=== PATIENT | male | born 1960 | race Two or more races ===

== ENCOUNTER 2018-05-27 09:28 | Emergency (ER) | payer MEDICARE, MEDICAID ==
[2018-05-27 10:13] LABS: BASO % 0.5 % (0-6); EOS % 2.7 % (0-6); GRAN % 64.4 % (47-80); HEMATOCRIT 45.5 % (42.0-52.0); HEMOGLOBIN 15.6 gm/dl (14.0-18.0); LYMPH % 23.7 % (16-45); MEAN CELL VOLUME 90.1 fl (81-97); MEAN CORPUSCULAR HEMOGLOBIN 30.9 pg (27-33); MEAN CORPUSCULAR HGB CONC 34.3 g/dl (32-36); MEAN PLATELET VOLUME 9.3 fl (7.4-10.4); MONO % 8.7 % (0-9); PLATELET COUNT 210 K/uL (130-400); RED BLOOD COUNT 5.05 M/uL (4.40-5.70); RED CELL DISTRIBUTION WIDTH 12.8 % (11.5-14.5); WHITE BLOOD COUNT W/O DIFF 9.8 K/uL (4.2-12.2)
--- NOTE | 2018-05-27 10:13 | Emergency Department Record ---
History of Present Illness - General Chief Complaint: Hypertension Stated Complaint: HIGH BLOOD PRESSURE Time Seen by Provider: 05/27/18 09:55 Source: Patient Mode of Arrival: Ambulatory Limitations: No limitations - History of Present Illness Initial Comments: The patient is here due to seeing his PCP today and sent to the ER due to his BP being high. The patient has been on 2 different blood pressure medicines chronically and then recently stopped one because he felt it was giving him side effects. Since his BP has been running high. Presently he denies any CP, SOB, HONEY, BEE, or visual changes. The patient has had mild BEE's off and on for weeks but none now. He also had some vague L sided sharp CP last night that was intermittent and NOT associated with any nausea, SOB, HONEY, sweating, or dizziness. The pain was not exertional and did not radiate. He has had no pain today and denies any cardiac hx. MD Complaint: Other Onset/Timin -: Days(s) History of Same: No History of Trauma: No Improves With: Nothing Worsens With: Nothing Associated Symptoms: Denies other symptoms - [place] Coma Scale Eye Response: (4) Open spontaneously Motor Response: (6) Obeys commands Verbal Response: (5) Oriented [place] Total: 15 - Related Data Home Medications Medication Instructions Recorded Confirmed Last Taken Atenolol 50 mg PO BID 05/27/18 05/27/18 Unknown Previous Rx's Medication Instructions Recorded Amlodipine Besylate [Norvasc] 5 mg PO DAILY #30 tab 05/27/18 Allergies Allergy/AdvReac Type Severity Reaction Status Date / Time Penicillins Allergy PT UNSURE Unverified 05/27/18 09:35 OF REACTION Travel Screening - Travel/Exposure Within Last 30 Days Have you traveled within the last 30 days?: No Review of Systems Constitutional: Denies: Chills, Fever Eyes: Denies: Eye discharge ENT: Denies: Congestion Respiratory: Denies: Cough, Dyspnea Past Medical History - SOCIAL HISTORY Smoking Status: Current every day smoker Alcohol Use: None Drug Use: None - RESPIRATORY Hx Respiratory Disorders: No - CARDIOVASCULAR Hx Cardio Disorders: Yes Hx Hypertension: Yes - NEURO Hx Neuro Disorders: No - GI Hx GI Disorders: Yes Hx Reflux: Yes - Hx Genitourinary Disorders: No - ENDOCRINE Hx Endocrine Disorders: No - MUSCULOSKELETAL Hx Musculoskeletal Disorders: Yes Comment:: spinal pinched nerves - PSYCH Hx Psych Problems: No - HEMATOLOGY/ONCOLOGY Hx Hematology/Oncology Disorders: No Family Medical History Any Significant Family History?: No Physical Exam - General General Appearance: Alert, Oriented x3, Cooperative, No acute distress - Head Head exam: Atraumatic, Normocephalic, Normal inspection - Eye Eye exam: Normal appearance, PERRL, EOMI - ENT Throat exam: Normal inspection. negative: Tonsillar erythema, Tonsillar exudate - Neck Neck exam: Normal inspection, Full ROM. negative: Tenderness - Respiratory Respiratory exam: Normal lung sounds bilaterally. negative: Respiratory distress - Cardiovascular Cardiovascular Exam: Regular rate, Normal rhythm, Normal heart sounds - GI/Abdominal GI/Abdominal exam: Soft, Normal bowel sounds. negative: Tenderness - Extremities Extremities exam: Normal inspection, Full ROM, Normal capillary refill. negative: Tenderness - Back Back exam: Reports: Normal inspection - Neurological Neurological exam: Alert, Normal gait, Oriented X3. negative: Abnormal gait, Motor sensory deficit - Psychiatric Psychiatric exam: negative: Anxious Course Vital Signs 05/27/18 09:35 Temperature 98.3 F Pulse Rate 87 Respiratory 20 Rate Blood Pressure 196/120 Pulse Ox 96 - Reevaluation(s) Reevaluation #1: The patient is doing better at this time. He denies any pain, BEE, or visual changes. The patient's BP is still elevated at 186/112. He does tell me that he normally runs 1160's/90's so he is only mildly elevated from his norm. We will continue the Norvasc and will have the patient see his PCP in 2 weeks for recheck. 05/27/18 11:40 Medical Decision Making - Data Complexity MDM Data: Labs Ordered and/or Reviewed, EKG Ordered and/or Reviewed - Lab Data Result diagrams: 05/27/18 09:40 05/27/18 09:40 - EKG Data -: EKG Interpreted by Me EKG: No Acute Changes (NSR at 84, RBBB.) Disposition Disposition: Discharge Clinical Impression: Hypertension Qualifiers: Hypertension type: unspecified Qualified Code(s): I10 - Essential (primary) hypertension Disposition: Home, Self-Care Condition: (2) Stable Instructions: Hypertension (ED) Additional Instructions: Please continue your medicines and continue the Norvasc. Please see your family doctor in 2 weeks for recheck. Return to the ER for any worsening symptoms, or any pain, BEE, CP, or SOB. Prescriptions: Amlodipine Besylate [Norvasc] 5 mg PO DAILY #30 tab Forms: Patient Portal Access Time of Disposition: 11:42 Quality - Quality Measures Quality Measures: N/A - Blood Pressure Screening View Details: Yes Does Patient Have Any of the Following: Active Dx of HTN Blood Pressure Classification: Hypertensive Reading Systolic Measurement: 196 Diastolic Measurement: 120 Screening for High Blood Pressure: Patient Exclusion, Hx of HTN [G9744]
[2018-05-27 10:23] LABS: BLOOD UREA NITROGEN 10 mg/dL (6-20); CREATININE 1.1 mg/dL (0.7-1.2); EST GLOMERULAR FILTRATION RATE > 60 mL/min
[2018-05-27 10:24] LABS: TOTAL PROTEIN 7.4 g/dL (6.6-8.7)
[2018-05-27 10:26] LABS: GLUCOSE,RANDOM 101 mg/dL (74-109)
[2018-05-27 10:28] LABS: ALB/GLOB RATIO 1.4 (1.1-1.8); ALBUMIN 4.3 g/dL (4.0-5.0); ALT/SGPT 14 U/L (<41); AST/SGOT 14 U/L (10.0-50.0)
[2018-05-27 10:29] LABS: ALKALINE PHOSPHATASE 77 U/L (40-129); CREATINE PHOSPHOKINASE 42 U/L (39-308)
[2018-05-27 10:31] LABS: CKMB 1.1 ng/mL (<6.73)
[2018-05-27] MEDS ORDERED: AMLODIPINE BESYLATE 5MG TAB PO SCH (10:45)
== END 2018-05-27 11:57 | disposition home or self-care (01) ==
LOC: ER 09:28
DX: I10 Essential (primary) hypertension (principal); F17.210 Nicotine dependence, cigarettes, uncomplicated
CPT/HCPCS: 80053; 82550; 82553; 84484; 85025; 93005; 93010; 99284

== ENCOUNTER 2018-07-23 14:37 | Emergency (ER) | payer MEDICARE, MEDICAID ==
[2018-07-23] MEDS ORDERED: METHYLPREDNISOLONE PF 125MG/VIAL IVP ONE (14:45)
[2018-07-23] MEDS ORDERED: IPRATROPIUM/ALBUTEROL (0.5MG/3MG) NEB INH ONE (14:45)
--- NOTE | 2018-07-23 14:51 | Emergency Department Record ---
History of Present Illness - General Chief Complaint: Allergic Reaction Stated Complaint: REACTION TO MEDS /SOB Time Seen by Provider: 07/23/18 14:45 Source: Patient Mode of Arrival: Ambulatory Limitations: No limitations - History of Present Illness Initial Comments: 57 yo male presents with progressive shortness of breath for about 8 days. He states it at the time of starting three new medications. He wheezing and a chronic cough. PFT last year demonstrated moderate COPD. No chest pain. His sputum is clear. His is a long standing smoker. He denies any fever or chills. No nausea, vomiting or diarrhea. MD Complaint: Shortness of breath Onset/Timin -: Days(s) (8) Severity: Severe Improves With: Nothing Worsens With: Exertion Known History Of: COPD Context: Other (Smoker) Associated Symptoms: Cough, Other (New mediation) Treatments Prior to Arrival: None - Related Data Home Medications Medication Instructions Recorded Confirmed Last Taken Nicotine [Nicotine Patch] 1 each TD ASDIR 07/23/18 07/23/18 Unknown Triamterene/Hydrochlorothiazid 1 each PO DAILY 07/23/18 07/23/18 Unknown [Triamterene-Hctz 75-50 mg Tab] Previous Rx's Medication Instructions Recorded Prednisone [Prednisone 20Mg] 20 mg PO BID #10 tab 07/23/18 Allergies Allergy/AdvReac Type Severity Reaction Status Date / Time Penicillins Allergy Severe ANAPHYLAXIS Unverified 07/23/18 14:46 Travel Screening - Travel/Exposure Within Last 30 Days Have you traveled within the last 30 days?: No Review of Systems Constitutional: Denies: Chills, Fever, Malaise, Weakness Eyes: Denies: Eye discharge, Eye pain, Vision change ENT: Denies: Congestion, Throat pain Respiratory: Reports: Cough, Dyspnea, Wheezes Cardiovascular: Reports: Dyspnea on exertion. Denies: Chest pain, Edema, Palpitations, Syncope Endocrine: Reports: Polydipsia. Denies: Fatigue, Polyuria Gastrointestinal: Denies: Abdominal pain, Diarrhea, Nausea, Vomiting Genitourinary: Reports: Frequency. Denies: Dysuria, Hematuria Musculoskeletal: Denies: Arthralgia, Back pain, Myalgia Skin: Denies: Bruising, Change in color, Rash Neurological: Denies: Headache, Weakness Psychiatric: Denies: Anxiety Hematological/Lymphatic: Denies: Blood Clots, Easy bleeding, Easy bruising, Swollen glands Past Medical History - SOCIAL HISTORY Smoking Status: Current every day smoker Alcohol Use: None Drug Use: None - RESPIRATORY Hx Respiratory Disorders: No - CARDIOVASCULAR Hx Cardio Disorders: Yes Hx Hypertension: Yes - NEURO Hx Neuro Disorders: No - GI Hx GI Disorders: Yes Hx Reflux: Yes - Hx Genitourinary Disorders: No - ENDOCRINE Hx Endocrine Disorders: No - MUSCULOSKELETAL Hx Musculoskeletal Disorders: Yes Comment:: spinal pinched nerves - PSYCH Hx Psych Problems: No - HEMATOLOGY/ONCOLOGY Hx Hematology/Oncology Disorders: No Family Medical History Any Significant Family History?: No Physical Exam - General General Appearance: Alert, Oriented x3, Cooperative, No acute distress Limitations: No limitations - Head Head exam: Atraumatic, Normal inspection - Eye Eye exam: Normal appearance, PERRL. negative: Conjunctival injection, Scleral icterus - ENT ENT exam: Normal exam, Mucous membranes moist Ear exam: Normal external inspection Nasal Exam: Normal inspection Mouth exam: Normal external inspection - Neck Neck exam: Normal inspection - Respiratory Respiratory exam: Decreased breath sounds, Prolonged expiratory, Wheezes. negative: Normal lung sounds bilaterally, Accessory muscle use, Chest wall tenderness, Rales, Respiratory distress, Rhonchi, Stridor - Cardiovascular Cardiovascular Exam: Regular rate, Normal rhythm, Normal heart sounds Peripheral Pulses: 2+: Radial (R), Radial (L) - GI/Abdominal GI/Abdominal exam: Soft. negative: Tenderness - Rectal Rectal exam: Deferred - exam: Deferred - Extremities Extremities exam: Normal inspection, Full ROM, Normal capillary refill. negative: Tenderness - Back Back exam: Denies: CVA tenderness (R), CVA tenderness (L) - Neurological Neurological exam: Alert, Oriented X3 - Psychiatric Psychiatric exam: Normal affect, Normal mood - Skin Skin exam: Dry, Intact, Normal color, Warm Course Vital Signs 07/23/18 14:41 Temperature 97.4 F L Pulse Rate 69 Respiratory 20 Rate Blood Pressure 172/82 Pulse Ox 98 - Reevaluation(s) Reevaluation #1: EKG 14:53 Rate 66, intervals normal, [place] normal, ST No acute process, Incomplete RBBB, no changes 05/27/18 07/23/18 15:13 07/23/18 15:33 The labs were reviewed The CBC is unremarkable for significant changes The CR is 1.7 up from 1.1 The Troponin is normal. 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 We discussed his labs and reviewed his chart. He was recently started on triamterene - hydrochlorothiazide. He has noted increased urination and thirst since starting this. This medication will be held. He will have his labs rechecked Thursday and recheck in the office Thursday. 07/23/18 17:07 CXR was read as negative for any acute process We discussed home care with the inhaler and prednisone. He was instructed to hold his diuretic until follow up and he is aware of the need to have the renal function rechecked. Medical Decision Making - Lab Data Result diagrams: 07/23/18 14:50 07/23/18 14:50 Disposition Disposition: Discharge Clinical Impression: COPD exacerbation, Renal insufficiency Disposition: Home, Self-Care Condition: (1) Good Instructions: COPD (Chronic Obstructive Pulmonary Disease) (ED) Additional Instructions: Do not take your Triamterene Hydrochlorothiazide until your doctor tells you to Call to be seen Thursday by your doctor and have your blood tests rechecked Thursday by your doctor You may use the inhaler as directed every 4-6 hours Take the Prednisone twice daily as directed Return to the ED if the wheezing or shortness of breath return. Prescriptions: Prednisone [Prednisone 20Mg] 20 mg PO BID #10 tab Forms: Patient Portal Access Time of Disposition: 16:46 Quality - Quality Measures Quality Measures: N/A - Blood Pressure Screening Does Patient Have Any of the Following: No Blood Pressure Classification: Pre-Hypertensive BP Reading Systolic Measurement: 172 Diastolic Measurement: 82 Screening for High Blood Pressure: < Pre-Hypertensive BP, F/U Documented > [ G8950] Pre-Hypertensive Follow-up Interventions: Referral to alternative/primary care provider.
[2018-07-23 15:02] LABS: BASO % 0.3 % (0-6); EOS % 1.2 % (0-6); HEMATOCRIT 44.6 % (42.0-52.0); HEMOGLOBIN 14.9 gm/dl (14.0-18.0); MEAN CELL VOLUME 91.4 fl (81-97); MEAN CORPUSCULAR HEMOGLOBIN 30.5 pg (27-33); MEAN CORPUSCULAR HGB CONC 33.4 g/dl (32-36); MEAN PLATELET VOLUME 9.5 fl (7.4-10.4); MONO % 7.5 % (0-9); PLATELET COUNT 223 K/uL (130-400); RED BLOOD COUNT 4.88 M/uL (4.40-5.70); WHITE BLOOD COUNT W/O DIFF 11.7 K/uL (4.2-12.2)
[2018-07-23 15:10] LABS: BLOOD UREA NITROGEN 29 mg/dL (6-20); CREATININE 1.7 mg/dL (0.7-1.2); EST GLOMERULAR FILTRATION RATE 44 mL/min
[2018-07-23 15:11] LABS: TOTAL PROTEIN 7.7 g/dL (6.6-8.7)
[2018-07-23 15:13] LABS: GLUCOSE,RANDOM 123 mg/dL (74-109)
[2018-07-23 15:15] LABS: ALT/SGPT 13 U/L (<41); AST/SGOT 14 U/L (10.0-50.0)
[2018-07-23 15:16] LABS: ALB/GLOB RATIO 1.2 (1.1-1.8); ALBUMIN 4.2 g/dL (4.0-5.0); ALKALINE PHOSPHATASE 78 U/L (55-149)
[2018-07-23] MEDS ORDERED: ALBUTEROL HFA 8 GM INHALER INH ONE (16:03)
--- NOTE | 2018-07-25 11:03 | RADIOLOGY REPORT ---
DATE: 07/23/2018. EXAM: TWO-VIEW CHEST RADIOGRAPH. HISTORY: Difficulty breathing. Possible medication reaction. TECHNIQUE: Two views of the chest. COMPARISON: Lung CT dated 04/14/2017. FINDINGS: Cardiac silhouette within normal size limits. Pulmonary vasculature appears nondilated. No focal pulmonary consolidation. No pleural effusion or pneumothorax. IMPRESSION: NO ACUTE LUNG FINDINGS. JOB NUMBER: [id number] MTDD
== END 2018-07-23 17:25 | disposition home or self-care (01) ==
LOC: ER 14:37
DX: J44.1 Chronic obstructive pulmonary disease with (acute) exacerbation (principal); N28.9 Disorder of kidney and ureter, unspecified; I10 Essential (primary) hypertension; F17.210 Nicotine dependence, cigarettes, uncomplicated
CPT/HCPCS: 71046; 80053; 83880; 84484; 85025; 93005; 93010; 94640; 94664; 96374; 99284; J2930

== ENCOUNTER 2019-01-22 02:17 | Emergency (ER) | payer MEDICARE, MEDICAID ==
[2019-01-22] MEDS ORDERED: IPRATROPIUM/ALBUTEROL (0.5MG/3MG) NEB INH ONE ×2 (02:28→03:05)
[2019-01-22 02:35] LABS: ABSOLUTE NEUTROPHIL COUNT 15.44; HEMATOCRIT 42.6 % (42.0-52.0); MEAN CELL VOLUME 90.6 fl (81-97); MEAN CORPUSCULAR HEMOGLOBIN 29.8 pg (27-33); MEAN CORPUSCULAR HGB CONC 32.9 g/dl (32-36); MEAN PLATELET VOLUME 8.9 fl (7.4-10.4); PLATELET COUNT 345 K/uL (130-400); RED CELL DISTRIBUTION WIDTH 13.5 % (11.5-14.5); WHITE BLOOD COUNT W/O DIFF 19.9 K/uL (4.2-12.2)
--- NOTE | 2019-01-22 02:46 | Emergency Department Record ---
History of Present Illness - General Chief Complaint: Shortness of breath Stated Complaint: HONEY Time Seen by Provider: 01/22/19 02:18 Source: Patient Mode of Arrival: Ambulatory Limitations: No limitations - History of Present Illness Initial Comments: Pt to ED with complaint of HONEY onset over the past 24 hours. Progressively worse this evening. Pt with non productive cough, no fever. No CP and no hx of cardiac disease. Pt is every day smoker without hx of similar resp issues or COPD. Pt has hx DVT left leg in 2013. Currently not on anticoagulation. No Hx PE. Onset/Timin -: Hour(s) Severity scale (1-10): 10 Quality: Sharp Consistency: Constant Worsens With: Exertion Associated Symptoms: Nausea/vomiting Treatments Prior to Arrival: None - Related Data Home Medications Medication Instructions Recorded Confirmed Last Taken Cyclobenzaprine HCl [Flexeril] 5 mg PO TID PRN 01/22/19 01/22/19 01/22/19 Hydrocodone/Acetaminophen [[place] 1 - 2 tab PO TID 01/22/19 01/22/19 01/22/19 5-325 Tablet] RX: Chlorthalidone 25 mg PO DAILY 01/22/19 01/22/19 01/22/19 RX: Losartan Potassium 100 mg PO DAILY 01/22/19 01/22/19 01/22/19 RX: Omeprazole 20 mg PO DAILY 01/22/19 01/22/19 01/22/19 Allergies Allergy/AdvReac Type Severity Reaction Status Date / Time Penicillins Allergy Severe ANAPHYLAXIS Verified 01/22/19 02:24 Travel Screening - Travel/Exposure Within Last 30 Days Have you traveled within the last 30 days?: No - Travel/Exposure Within Last Year Have you traveled outside the [place] in the last year?: No - Additonal Travel Details Have you been exposed to anyone with a communicable illness?: No - Travel Symptoms Symptom Screening: None Past Medical History - SOCIAL HISTORY Smoking Status: Current every day smoker Alcohol Use: None Drug Use: None - RESPIRATORY Hx Respiratory Disorders: No - CARDIOVASCULAR Hx Cardio Disorders: Yes Hx Deep Vein Thrombosis: Yes Hx Hypertension: Yes - NEURO Hx Neuro Disorders: No - GI Hx GI Disorders: Yes Hx Reflux: Yes - Hx Genitourinary Disorders: No - ENDOCRINE Hx Endocrine Disorders: No - MUSCULOSKELETAL Hx Musculoskeletal Disorders: Yes Comment:: spinal pinched nerves - PSYCH Hx Psych Problems: No - HEMATOLOGY/ONCOLOGY Hx Hematology/Oncology Disorders: No Family Medical History Any Significant Family History?: No Physical Exam - General General Appearance: Alert, Oriented x3, Cooperative, Moderate distress Limitations: No limitations - Head Head exam: Atraumatic - Eye Eye exam: Normal appearance, PERRL, EOMI - ENT ENT exam: Mucous membranes moist Ear exam: Normal external inspection Nasal Exam: Normal inspection Mouth exam: Normal external inspection - Neck Neck exam: Normal inspection, Full ROM. negative: Lymphadenopathy, Tenderness - Respiratory Respiratory exam: Accessory muscle use, Decreased breath sounds, Prolonged expiratory, Rhonchi, Wheezes - Cardiovascular Cardiovascular Exam: Regular rate, Normal rhythm, Tachycardia Peripheral Pulses: 2+: Radial (R), Radial (L) - GI/Abdominal GI/Abdominal exam: Soft, Normal bowel sounds. negative: Guarding, Tenderness - Extremities Extremities exam: Full ROM. negative: Calf tenderness, Joint swelling, Pedal edema, Tenderness - Back Back exam: Reports: Normal inspection - Neurological Neurological exam: Alert, Normal gait, Oriented X3 - Psychiatric Psychiatric exam: Anxious, Normal affect, Normal mood - Skin Skin exam: Diaphoretic, Pallor. negative: Rash Course Vital Signs 01/22/19 01/22/19 02:17 02:35 Pulse Rate [ 109 H 114 H Adjutant General ] Respiratory 32 H 32 H Rate Blood Pressure 189/108 140/87 [Left Arm] Pulse Ox 94 L 94 L - Reevaluation(s) Reevaluation #1: 01/22/19 03:13 On arrival pt is pale and diaphoretic with marked HONEY. CXR is portable with poor inspiration and enlarged heart. No evidence of failure. EKG is unchanged and Trop #1 is neg, BNP 450. D dimer elevated 1.9. Pt given Duoneb on arrival with slight improvement BiPap with symptomatic improvement. PO 96% on 2L with BiPAP. With hx concern is for PE and pt is unable to have CTA due to renal function. Solumedrol IV 125mg and second Duoneb given. Lovenox 120mg SQ given. I spoke with Dr. Espinal at [facility] ED and he accepts patient for transfer to the ED. EMS notified. Pt is aware of transfer and concern for PE. Accepts plan. Procedures - EKG Initial Date: 01/22/19 Time: 02:15 EKG: No Acute Changes (SR at 119 ) Medical Decision Making - Management Options MDM Management: Additional Work-up Planned (e.g. ADM/Transfer/OP Study) - Data Complexity MDM Data: Labs Ordered and/or Reviewed, X-Ray Ordered and/or Reviewed, EKG Ordered and/or Reviewed, Independent Visualization of Image, Tracing, or Specimen, Decision to Obtain Old Record - Lab Data Result diagrams: 01/22/19 02:24 01/22/19 02:24 Lab Results 01/22/19 Range/Units 02:24 WBC 19.9 H (4.2-12.2) K/uL RBC 4.70 (4.40-5.70) M/uL Hgb 14.0 (14.0-18.0) gm/dl Hct 42.6 (42.0-52.0) % MCV 90.6 (81-97) fl MCH 29.8 (27-33) pg MCHC 32.9 (32-36) g/dl RDW 13.5 (11.5-14.5) % Plt Count 345 (130-400) K/uL MPV 8.9 (7.4-10.4) fl Neutrophils % 74.0 (47-80) % Band Neutrophils % 3.0 (0-5) % Eosinophils % Not Reportable Basophils % Not Reportable Absolute Neutrophils 15.44 Lymphocytes 12.0 L (16-45) % Monocytes 9.0 (0-9) % Basophils 0.0 (0-6) % Eosinophil Count 2.0 (0-6) % - EKG Data -: EKG Interpreted by Me EKG: No Acute Changes - Radiology Data Radiology results: Image reviewed -: Radiology Exam Interpreted by Myself Portable chest with poor insp and enlarged heart - Medical Decision Making Transfer to [facility] - Differential Diagnosis Pe vs COPD/pneumonia vs CHF (doubt) Critical Care Time Critical Care Time: Yes Total Critical Care Time: 60 (bedside attendance and multiple rechecks, calls for transfer.) Critical Care Time: 60 minutes Disposition Disposition: Transfer Clinical Impression: Tobacco abuse, Acute respiratory distress Leukocytosis Qualifiers: Leukocytosis type: unspecified Qualified Code(s): D72.829 - Elevated white blood cell count, unspecified Disposition: Acute Care Hospital Transfer Transfer To: [facility] Emergency Reason For Transfer: Rule out Pulmonary Embolism vs COPD vs other Accepting Physician: Dr. Espinal Time Discussed w/Accepting Physician: :19 Condition: (3) Guarded Forms: Patient Portal Access Time of Disposition: :19 Quality - Quality Measures Quality Measures: N/A - Blood Pressure Screening Does Patient Have Any of the Following: No Blood Pressure Classification: Pre-Hypertensive BP Reading Systolic Measurement: 133 Diastolic Measurement: 83 Screening for High Blood Pressure: < Pre-Hypertensive BP, F/U Documented > [G8950] Pre-Hypertensive Follow-up Interventions: Follow-up with rescreen every year.
[2019-01-22 02:48] LABS: BLOOD UREA NITROGEN 24 mg/dL (8-23)
[2019-01-22 02:49] LABS: CREATININE 1.6 mg/dL (0.7-1.2); EST GLOMERULAR FILTRATION RATE 47 mL/min; PARTIAL THROMBOPLASTIN TIME 33.7 SECONDS (24.5-39.1); PROTHROMBIN TIME (PATIENT) 10.7 SECONDS (9.5-12.1); TOTAL PROTEIN 8.1 g/dL (6.6-8.7)
[2019-01-22 02:51] LABS: GLUCOSE,RANDOM 133 mg/dL (74-109)
[2019-01-22 02:54] LABS: ALB/GLOB RATIO 1.2 (1.1-1.8); ALBUMIN 4.4 g/dL (4.0-5.0); ALT/SGPT 9 U/L (<41); AST/SGOT 10 U/L (10.0-50.0)
[2019-01-22 02:55] LABS: ALKALINE PHOSPHATASE 80 U/L (40-129)
[2019-01-22] MEDS ORDERED: ENOXAPARIN 100 MG/ML SYR SQ ONE (03:04)
[2019-01-22] MEDS ORDERED: METHYLPREDNISOLONE PF 125MG/VIAL IVP ONE (03:05)
--- NOTE | 2019-01-23 22:10 | RADIOLOGY REPORT ---
EXAM: CHEST 1 VIEW HISTORY: SHORTNESS OF BREATH. DECREASED OXYGEN SATURATION AND INCREASED RESPIRATORY RATE. SYMPTOMS FOR THE PAST TWO HOURS. TECHNIQUE: A single portable AP view of the chest was performed. COMPARISON: 07/23/2018. FINDINGS: There are low lung volumes. The heart, mediastinum, and pulmonary vasculature are normal. There are no visible acute infiltrates or effusions. There is no pneumothorax. The bones appear intact. IMPRESSION: 1. LOW LUNG VOLUMES. 2. NO ACUTE CHEST PATHOLOGY. JOB NUMBER: [id number] [facility]
== END 2019-01-22 04:02 | disposition short-term general hospital (02) ==
LOC: ER 02:17
DX: R06.03 Acute respiratory distress (principal); R79.89 Other specified abnormal findings of blood chemistry; D72.829 Elevated white blood cell count, unspecified; R11.2 Nausea with vomiting, unspecified; I10 Essential (primary) hypertension; F17.210 Nicotine dependence, cigarettes, uncomplicated; Z86.718 Personal history of other venous thrombosis and embolism
CPT/HCPCS: 71045; 80053; 83880; 84484; 85027; 85379; 85610; 85730; 93005; 93010; 94640; 94660; 96372; 96374; 99291; J1650; J2930

== ENCOUNTER 2019-02-07 10:36 | Emergency (ER) | payer MEDICARE, MEDICAID ==
--- NOTE | 2019-02-07 12:10 | Emergency Department Record ---
History of Present Illness - General Chief complaint: Swelling of legs Stated complaint: LT LEG SWOLLEN DUE TO MEDS Time Seen by Provider: 02/07/19 11:53 Source: Patient Mode of Arrival: Wheelchair - History of Present Illness Initial comments: pt c/o l leg pain behind the knee and up the thigh into the groin that feels like his previous dvt. no cp MD Complaint: Extremity pain, Extremity swelling Onset/Timin -: Days(s) Location: Left, Lower Leg, Thigh History of Same: No Radiation: None Severity scale (1-10): 10 Quality: Sharp Consistency: Constant Improves with: Immobilization Worsens with: Exertion, Walking, Weight bearing Associated Symptoms: Denies other symptoms - Related Data Home Medications Medication Instructions Recorded Confirmed Last Taken Hydrochlorothiazide [Hctz] 25 mg PO DAILY 02/07/19 02/07/19 Unknown Allergies Allergy/AdvReac Type Severity Reaction Status Date / Time Penicillins Allergy Severe ANAPHYLAXIS Verified 01/22/19 02:24 Travel Screening - Travel/Exposure Within Last 30 Days Have you traveled within the last 30 days?: No Review of Systems Reviewed: No additional complaints except as noted below Constitutional: Reports: As per HPI. Denies: Chills, Fever, Malaise, Night sweats, Weakness, Weight change Eyes: Reports: As per HPI. Denies: Eye discharge, Eye pain, Photophobia, Vision change ENT: Reports: As per HPI. Denies: Congestion, Dental pain, Ear pain, Epistaxis, Hearing loss, Throat pain Respiratory: Reports: As per HPI. Denies: Cough, Dyspnea, Hemoptysis, Stridor, Wheezes Cardiovascular: Reports: As per HPI. Denies: Arrhythmia, Chest pain, Dyspnea on exertion, Edema, Murmurs, Orthopnea, Palpitations, Paroxysmal nocturnal dyspnea, Rheumatic Fever, Syncope Endocrine: Reports: As per HPI. Denies: Fatigue, Heat or cold intolerance, Polydipsia, Polyuria Gastrointestinal: Reports: As per HPI. Denies: Abdominal pain, Constipation, Diarrhea, Hematemesis, Hematochezia, Melena, Nausea, Vomiting Genitourinary: Reports: As per HPI. Denies: Dysuria, Frequency, Hematuria, Incontinence, Retention, Testicular pain, Testicular mass, Urgency Musculoskeletal: Reports: As per HPI. Denies: Arthralgia, Back pain, Gout, Joint swelling, Myalgia, Neck pain Skin: Reports: As per HPI. Denies: Bruising, Change in color, Change in hair/nails, Lesions, Pruritus, Rash Neurological: Reports: As per HPI. Denies: Abnormal gait, Confusion, Headache, Numbness, Paresthesias, Seizure, Tingling, Tremors, Vertigo, Weakness Psychiatric: Reports: As per HPI. Denies: Anxiety, Auditory hallucinations, Depression, Homicidal thoughts, Suicidal thoughts, Visual hallucinations Hematological/Lymphatic: Reports: As per HPI. Denies: Anemia, Blood Clots, Easy bleeding, Easy bruising, Swollen glands Past Medical History - SOCIAL HISTORY Smoking Status: Current every day smoker - RESPIRATORY Hx Respiratory Disorders: No - CARDIOVASCULAR Hx Cardio Disorders: Yes Hx Deep Vein Thrombosis: Yes Hx Hypertension: Yes - NEURO Hx Neuro Disorders: No - GI Hx GI Disorders: Yes Hx Reflux: Yes - Hx Genitourinary Disorders: No - ENDOCRINE Hx Endocrine Disorders: No - MUSCULOSKELETAL Hx Musculoskeletal Disorders: Yes Comment:: spinal pinched nerves - PSYCH Hx Psych Problems: No - HEMATOLOGY/ONCOLOGY Hx Hematology/Oncology Disorders: No Family Medical History Any Significant Family History?: No Physical Exam - General General Appearance: Alert, Oriented x3, Cooperative, Mild distress - Head Head exam: Normal inspection - Eye Eye exam: Normal appearance, PERRL, EOMI Pupils: Normal accommodation - ENT ENT exam: Normal exam, Mucous membranes moist, Normal external ear exam, Normal orophraynx Ear exam: Normal external inspection. negative: External canal tenderness Nasal Exam: Normal inspection. negative: Discharge, Sinus tenderness Mouth exam: Normal external inspection, Tongue normal Teeth exam: Normal inspection. negative: Dental caries Throat exam: Normal inspection. negative: Tonsillar erythema, Tonsillar exudate - Neck Neck exam: Normal inspection, Full ROM. negative: Tenderness - Respiratory Respiratory exam: Normal lung sounds bilaterally. negative: Respiratory distress - Cardiovascular Cardiovascular Exam: Normal rhythm, Normal heart sounds, Tachycardia - GI/Abdominal GI/Abdominal exam: Soft, Normal bowel sounds. negative: Tenderness - Rectal Rectal exam: Deferred - exam: Deferred - Extremities Extremities exam: Normal capillary refill, Tenderness. negative: Full ROM - Back Back exam: Reports: Normal inspection, Full ROM. Denies: Muscle spasm, Rash noted, Tenderness - Neurological Neurological exam: Alert, CN II-XII intact, Normal gait, Oriented X3 - Psychiatric Psychiatric exam: Normal affect, Normal mood - Skin Skin exam: Dry, Intact, Normal color, Warm Course Vital Signs 02/07/19 11:08 Temperature 98.1 F Pulse Rate 108 H Respiratory 20 Rate Blood Pressure 162/87 Pulse Ox 97 - Reevaluation(s) Reevaluation #1: 02/07/19 12:08 d/w dr murillo Medical Decision Making - Lab Data Result diagrams: 02/07/19 11:58 02/07/19 11:58 Disposition Disposition: Transfer Clinical Impression: Leg pain Qualifiers: Laterality: left Qualified Code(s): M79.605 - Pain in left leg DVT (deep venous thrombosis) Qualifiers: DVT location: lower extremity Affected thrombotic vein of extremity: unspecified vein of extremity Chronicity: acute Laterality: left Qualified Code(s): I82.402 - Acute embolism and thrombosis of unspecified deep veins of left lower extremity Disposition: Acute Care Hospital Transfer Transfer To: [facility] Reason For Transfer: needs doppler Accepting Physician: dr murillo Time Discussed w/Accepting Physician: 12:10 Quality - Quality Measures Quality Measures: N/A - Blood Pressure Screening Does Patient Have Any of the Following: No Blood Pressure Classification: Pre-Hypertensive BP Reading Systolic Measurement: 162 Diastolic Measurement: 87 Screening for High Blood Pressure: < Pre-Hypertensive BP, F/U Documented > [G8950] Pre-Hypertensive Follow-up Interventions: Follow-up with rescreen every year.
[2019-02-07 12:12] LABS: ABSOLUTE NEUTROPHIL COUNT 13.84; BASO % 0.2 % (0-6); EOS % 2.6 % (0-6); HEMATOCRIT 38.2 % (42.0-52.0); LYMPH % 5.2 % (16-45); MEAN CORPUSCULAR HEMOGLOBIN 28.9 pg (27-33); MEAN CORPUSCULAR HGB CONC 31.4 g/dl (32-36); MEAN PLATELET VOLUME 8.6 fl (7.4-10.4); MONO % 6.4 % (0-9); PLATELET COUNT 207 K/uL (130-400); RED BLOOD COUNT 4.15 M/uL (4.40-5.70); RED CELL DISTRIBUTION WIDTH 14.2 % (11.5-14.5); WHITE BLOOD COUNT W/O DIFF 16.2 K/uL (4.2-12.2)
--- NOTE | 2019-02-07 12:13 | Emergency Department Record ---
History of Present Illness - General Chief complaint: Swelling of legs Stated complaint: LT LEG SWOLLEN DUE TO MEDS Time Seen by Provider: 02/07/19 11:53 Source: Patient Mode of Arrival: Wheelchair - History of Present Illness MD Complaint: Extremity pain, Extremity swelling Onset/Timin -: Days(s) Location: Left, Lower Leg, Thigh History of Same: No Radiation: None Severity scale (1-10): 10 Quality: Sharp Consistency: Constant Improves with: Immobilization Worsens with: Exertion, Walking, Weight bearing Associated Symptoms: Denies other symptoms - Related Data Home Medications Medication Instructions Recorded Confirmed Last Taken Hydrochlorothiazide [Hctz] 25 mg PO DAILY 02/07/19 02/07/19 Unknown Allergies Allergy/AdvReac Type Severity Reaction Status Date / Time Penicillins Allergy Severe ANAPHYLAXIS Verified 01/22/19 02:24 Travel Screening - Travel/Exposure Within Last 30 Days Have you traveled within the last 30 days?: No Review of Systems Constitutional: Reports: As per HPI. Denies: Chills, Fever, Malaise, Night sweats, Weakness, Weight change Eyes: Reports: As per HPI. Denies: Eye discharge, Eye pain, Photophobia, Vision change ENT: Reports: As per HPI. Denies: Congestion, Dental pain, Ear pain, Epistaxis, Hearing loss, Throat pain Respiratory: Reports: As per HPI. Denies: Cough, Dyspnea, Hemoptysis, Stridor, Wheezes Cardiovascular: Reports: As per HPI. Denies: Arrhythmia, Chest pain, Dyspnea on exertion, Edema, Murmurs, Orthopnea, Palpitations, Paroxysmal nocturnal dyspnea, Rheumatic Fever, Syncope Endocrine: Reports: As per HPI. Denies: Fatigue, Heat or cold intolerance, Polydipsia, Polyuria Gastrointestinal: Reports: As per HPI. Denies: Abdominal pain, Constipation, Diarrhea, Hematemesis, Hematochezia, Melena, Nausea, Vomiting Genitourinary: Reports: As per HPI. Denies: Dysuria, Frequency, Hematuria, Incontinence, Retention, Testicular pain, Testicular mass, Urgency Musculoskeletal: Reports: As per HPI. Denies: Arthralgia, Back pain, Gout, Joint swelling, Myalgia, Neck pain Skin: Reports: As per HPI. Denies: Bruising, Change in color, Change in hair/nails, Lesions, Pruritus, Rash Neurological: Reports: As per HPI. Denies: Abnormal gait, Confusion, Headache, Numbness, Paresthesias, Seizure, Tingling, Tremors, Vertigo, Weakness Psychiatric: Reports: As per HPI. Denies: Anxiety, Auditory hallucinations, Depression, Homicidal thoughts, Suicidal thoughts, Visual hallucinations Hematological/Lymphatic: Reports: As per HPI. Denies: Anemia, Blood Clots, Easy bleeding, Easy bruising, Swollen glands Past Medical History - SOCIAL HISTORY Smoking Status: Current every day smoker - RESPIRATORY Hx Respiratory Disorders: No - CARDIOVASCULAR Hx Cardio Disorders: Yes Hx Deep Vein Thrombosis: Yes Hx Hypertension: Yes - NEURO Hx Neuro Disorders: No - GI Hx GI Disorders: Yes Hx Reflux: Yes - Hx Genitourinary Disorders: No - ENDOCRINE Hx Endocrine Disorders: No - MUSCULOSKELETAL Hx Musculoskeletal Disorders: Yes Comment:: spinal pinched nerves - PSYCH Hx Psych Problems: No - HEMATOLOGY/ONCOLOGY Hx Hematology/Oncology Disorders: No Family Medical History Any Significant Family History?: No Physical Exam - General General Appearance: Alert, Oriented x3, Cooperative, No acute distress - Head Head exam: Normal inspection - Eye Eye exam: Normal appearance, PERRL, EOMI Pupils: Normal accommodation - ENT ENT exam: Normal exam, Mucous membranes moist, Normal external ear exam, Normal orophraynx Ear exam: Normal external inspection. negative: External canal tenderness Nasal Exam: Normal inspection. negative: Discharge, Sinus tenderness Mouth exam: Normal external inspection, Tongue normal Teeth exam: Normal inspection. negative: Dental caries Throat exam: Normal inspection. negative: Tonsillar erythema, Tonsillar exudate - Neck Neck exam: Normal inspection, Full ROM. negative: Tenderness - Respiratory Respiratory exam: Normal lung sounds bilaterally. negative: Respiratory distress - Cardiovascular Cardiovascular Exam: Regular rate, Normal rhythm, Normal heart sounds - GI/Abdominal GI/Abdominal exam: Soft, Normal bowel sounds. negative: Tenderness - Rectal Rectal exam: Deferred - exam: Deferred - Extremities Extremities exam: Normal inspection, Calf tenderness, Full ROM, Normal capillary refill, Tenderness Image of Full Body: 1 - tender w swelling - Back Back exam: Reports: Normal inspection, Full ROM. Denies: Muscle spasm, Rash noted, Tenderness - Neurological Neurological exam: Alert, Normal gait, Oriented X3, Reflexes normal - Psychiatric Psychiatric exam: Normal affect, Normal mood - Skin Skin exam: Dry, Intact, Normal color, Warm Course Vital Signs 02/07/19 11:08 Temperature 98.1 F Pulse Rate 108 H Respiratory 20 Rate Blood Pressure 162/87 Pulse Ox 97 Medical Decision Making - Lab Data Result diagrams: 02/07/19 11:58 02/07/19 11:58 Disposition Disposition: Transfer Clinical Impression: Leg pain Qualifiers: Laterality: left Qualified Code(s): M79.605 - Pain in left leg DVT (deep venous thrombosis) Qualifiers: DVT location: lower extremity Affected thrombotic vein of extremity: unspecified vein of extremity Chronicity: acute Laterality: left Qualified Code(s): I82.402 - Acute embolism and thrombosis of unspecified deep veins of left lower extremity Disposition: Acute Care Hospital Transfer Transfer To: [facility] Reason For Transfer: needs doppler Accepting Physician: dr murillo Time Discussed w/Accepting Physician: 12:13 Forms: Patient Portal Access Quality - Quality Measures Quality Measures: N/A - Blood Pressure Screening Does Patient Have Any of the Following: No Blood Pressure Classification: Pre-Hypertensive BP Reading Systolic Measurement: 162 Diastolic Measurement: 87 Screening for High Blood Pressure: < Pre-Hypertensive BP, F/U Documented > [G8950] Pre-Hypertensive Follow-up Interventions: Follow-up with rescreen every year.
[2019-02-07 12:32] LABS: CREATININE 1.7 mg/dL (0.7-1.2)
== END 2019-02-07 12:28 | disposition short-term general hospital (02) ==
LOC: ER 10:36
DX: I82.402 Acute embolism and thrombosis of unspecified deep veins of left lower extremity (principal); M79.605 Pain in left leg; I10 Essential (primary) hypertension; F17.210 Nicotine dependence, cigarettes, uncomplicated
CPT/HCPCS: 80048; 85027; 85379; 99285

== ENCOUNTER 2019-03-21 14:59 | Observation (INO) | payer MEDICARE, MEDICAID ==
--- NOTE | 2019-03-21 15:56 | Emergency Department Record ---
History of Present Illness - General Chief Complaint: Shortness of breath Stated Complaint: HONEY,CHILLS,DRY HEAVES Time Seen by Provider: 03/21/19 15:55 Source: Patient Mode of Arrival: Ambulatory Limitations: No limitations - History of Present Illness Initial Comments: 58 yo male presents with a cough with chills. He has had a cough for about a week. Over the last 24 hours his cough, wheezing and shortness of breath have increased. He has had subjective fevers and chills. The cough to this point has been non productive but he feels rattling in the chest. He has a history of COPD and recent diagnosis of PE. He is on Xarelto. No chest pain. The patient was admitted early February for a left leg thrombectomy and diagnosed with PE on VQ scan. MD Complaint: Cough -: Days(s) Quality: Aching Consistency: Constant Improves With: Nothing Worsens With: Coughing, Exertion Known History Of: COPD (a), Other (PE) Context: Other (Smoker) Associated Symptoms: Cough, Fever Treatments Prior to Arrival: None - Related Data Home Oxygen Therapy: No Home Medications Medication Instructions Recorded Confirmed Last Taken Rivaroxaban [Xarelto] 20 mg PO DAILY 03/21/19 03/21/19 1 Day Ago ~03/20/19 Umeclidinium Brm/Vilanterol Tr 1 each IH DAILY 03/21/19 03/21/19 1 Day Ago [Anoro Ellipta 62.5-25 Mcg INH] ~03/20/19 Allergies Allergy/AdvReac Type Severity Reaction Status Date / Time Penicillins Allergy Severe ANAPHYLAXIS Verified 03/21/19 16:02 Review of Systems Constitutional: Reports: Chills, Fever. Denies: Malaise, Weakness Eyes: Denies: Eye discharge, Eye pain, Photophobia, Vision change ENT: Reports: Congestion Respiratory: Reports: Cough, Dyspnea, Wheezes. Denies: Hemoptysis Cardiovascular: Denies: Chest pain, Palpitations, Syncope Endocrine: Denies: Fatigue, Polydipsia, Polyuria Gastrointestinal: Denies: Abdominal pain, Diarrhea, Nausea, Vomiting Genitourinary: Denies: Dysuria, Frequency, Hematuria Musculoskeletal: Denies: Arthralgia, Back pain, Myalgia Skin: Denies: Bruising, Change in color, Rash Neurological: Denies: Headache Psychiatric: Denies: Anxiety Hematological/Lymphatic: Reports: As per HPI, Blood Clots. Denies: Easy bleeding, Easy bruising Past Medical History - SOCIAL HISTORY Smoking Status: Current every day smoker - RESPIRATORY Hx Respiratory Disorders: No - CARDIOVASCULAR Hx Cardio Disorders: Yes Hx Deep Vein Thrombosis: Yes Hx Hypertension: Yes - NEURO Hx Neuro Disorders: No - GI Hx GI Disorders: Yes Hx Reflux: Yes - Hx Genitourinary Disorders: No - ENDOCRINE Hx Endocrine Disorders: No - MUSCULOSKELETAL Hx Musculoskeletal Disorders: Yes Comment:: spinal pinched nerves - PSYCH Hx Psych Problems: No - HEMATOLOGY/ONCOLOGY Hx Hematology/Oncology Disorders: No Physical Exam - General General Appearance: Alert, Oriented x3, Cooperative, No acute distress Limitations: No limitations - Head Head exam: Atraumatic, Normal inspection - Eye Eye exam: Normal appearance, PERRL. negative: Conjunctival injection, Scleral icterus - ENT ENT exam: Normal exam Ear exam: Normal external inspection Nasal Exam: Normal inspection Mouth exam: Normal external inspection - Neck Neck exam: Normal inspection - Respiratory Respiratory exam: Accessory muscle use, Decreased breath sounds, Prolonged expiratory, Rhonchi, Wheezes. negative: Normal lung sounds bilaterally, Respiratory distress - Cardiovascular Cardiovascular Exam: Normal rhythm, Normal heart sounds, Tachycardia. negative: Regular rate Peripheral Pulses: 2+: Radial (R), Radial (L) - GI/Abdominal GI/Abdominal exam: Soft. negative: Tenderness - exam: Deferred - Extremities Extremities exam: Pedal edema - Back Back exam: Denies: CVA tenderness (R), CVA tenderness (L) - Neurological Neurological exam: Alert, Oriented X3 - Psychiatric Psychiatric exam: Normal affect, Normal mood - Skin Skin exam: Dry, Intact, Normal color, Warm Course - Reevaluation(s) Reevaluation #1: 03/21/19 16:52 The CBC was reviewed WBC is 15 with Hgb of 11.5 03/21/19 17:07 CXR with a new right pleural effusion 03/21/19 18:38 Lab was contacted BUN is 16 CR is 1.8 (Prior is 1.7) Glucose is 134 03/21/19 18:44 The case was discussed with Marli Fitch [employer] for admission for antibiotics, breathing treatments, monitoring, and steroids. Medical Decision Making - Lab Data Result diagrams: 03/21/19 16:28 03/21/19 16:28 Disposition Disposition: Admit Clinical Impression: COPD (chronic obstructive pulmonary disease), Recurrent right pleural effusion, Pneumonia Disposition: Still a Patient at [facility] Decision to Admit: Admit from ER Decision to Admit Date: 03/21/19 Decision to Admit Time: 18:38 Condition: (2) Stable Forms: Patient Portal Access Time of Disposition: 18:38 Quality - Quality Measures Quality Measures: N/A - Blood Pressure Screening Does Patient Have Any of the Following: Active Dx of HTN Blood Pressure Classification: Hypertensive Reading Systolic Measurement: 175 Diastolic Measurement: 123 Screening for High Blood Pressure: Patient Exclusion, Hx of HTN [G9744]
[2019-03-21] MEDS ORDERED: IPRATROPIUM/ALBUTEROL (0.5MG/3MG) NEB INH ONE (16:13)
[2019-03-21] MEDS ORDERED: METHYLPREDNISOLONE PF 125MG/VIAL IVP ONE (16:14)
[2019-03-21] MEDS ORDERED: ALBUTEROL (0.5% CONCENTRATED) 2.5 MG/0.5 ML VIAL.NEB INH ONE (16:14)
[2019-03-21 16:46] LABS: ABSOLUTE NEUTROPHIL COUNT 14.17; HEMATOCRIT 35.9 % (42.0-52.0); HEMOGLOBIN 11.2 gm/dl (14.0-18.0); MEAN CELL VOLUME 92.5 fl (81-97); MEAN CORPUSCULAR HEMOGLOBIN 28.8 pg (27-33); MEAN CORPUSCULAR HGB CONC 31.2 g/dl (32-36); MEAN PLATELET VOLUME 8.8 fl (7.4-10.4); PLATELET COUNT 293 K/uL (130-400); RED BLOOD COUNT 3.88 M/uL (4.40-5.70); RED CELL DISTRIBUTION WIDTH 14.2 % (11.5-14.5); WHITE BLOOD COUNT W/O DIFF 15.6 K/uL (4.2-12.2)
[2019-03-21 16:59] LABS: INFLUENZA A NEGATIVE (NEGATIVE); INFLUENZA B NEGATIVE (NEGATIVE)
[2019-03-21] MEDS ORDERED: LEVOFLOXACIN/D5W 750 MG/150 ML BAG IVPB ONE (17:09)
[2019-03-21] MEDS ORDERED: AZITHROMYCIN 500 MG TABLET PO ONE (17:09)
[2019-03-21 17:10] LABS: PLATELET ESTIMATE NORMAL (NORMAL)
[2019-03-21 18:31] LABS: CREATININE 1.8 mg/dL (0.7-1.2)
[2019-03-21] MEDS ORDERED: ACETAMINOPHEN 325 MG TAB PO PRN (19:38)
[2019-03-21] MEDS ORDERED: ALBUTEROL SULFATE (0.083%) 2.5 MG/3 ML NEB INH PRN (19:38)
[2019-03-21] MEDS: HYDROCODONE/APAP 5/325MG TABLET PO PRN (20:48)
[2019-03-21] MEDS: 0.9 % SODIUM CHLORIDE 1000ML 1,000 ML IV PRN (21:54)
[2019-03-21] MEDS: METHYLPREDNISOLONE PF 125MG/VIAL IVP SCH (23:36)
[2019-03-22] MEDS: IPRATROPIUM/ALBUTEROL (0.5MG/3MG) NEB INH SCH ×3 (00:10→09:49)
[2019-03-22] MEDS: 0.9 % SODIUM CHLORIDE 1000ML 1,000 ML IV PRN (05:34)
[2019-03-22] MEDS ORDERED: PANTOPRAZOLE SODIUM 40 MG TABLET PO SCH (07:00)
[2019-03-22 07:12] LABS: ABSOLUTE NEUTROPHIL COUNT 13.23; BASO % 0.1 % (0-6); HEMATOCRIT 33.4 % (42.0-52.0); HEMOGLOBIN 10.3 gm/dl (14.0-18.0); LYMPH % 2.5 % (16-45); MEAN CELL VOLUME 92.3 fl (81-97); MEAN CORPUSCULAR HGB CONC 30.8 g/dl (32-36); MEAN PLATELET VOLUME 8.9 fl (7.4-10.4); PLATELET COUNT 301 K/uL (130-400); RED BLOOD COUNT 3.62 M/uL (4.40-5.70); WHITE BLOOD COUNT W/O DIFF 13.9 K/uL (4.2-12.2)
[2019-03-22 07:24] LABS: MEAN CORPUSCULAR HEMOGLOBIN 28.4 pg (27-33)
--- NOTE | 2019-03-22 07:58 | History & Physical ---
History of Present Illness - Date of Service Date of Service for History & Physical: 03/22/19 - History of Present Illness Admitting Diagnosis: Pneumonia, COPD, Pleural effusion History of Present Illness: Jaden Meneses is a 58 y.o. M who presented to the [facility] ED on 03/21/19 for c/o wheezing, SOB, cough with chills x 24 hours. Cough had been present for about 1 week. Was recently diagnosed with DVT to LLE and PE in February 2019. During that hospitalization, he was diagnosed with COPD. Has been on Xarelto since February and states that he has not missed any doses. PMHx: COPD, LLE DVT, Tobacco use, GERD, low back pain PCP: Sendy Burt NP ED Course -Vitals: T 100.1, HR 120, BP 175/123, RR 20, SpO2 95% on RA -Labs: WBC 15.6, Hgb 11.2, AG 18, Creatinine 1.8 -Influenza Negative -CXR: New Right Pleural Effusion 03/22/19 0800 Vitals: T 97.9, HR 96, BP 174/71, RR 18, SpO2 94% on RA Pt was started on Albuterol nebulizer treatments, IV solumedrol, Azithromycin and Levaquin yesterday. Today, he reports that he feels significantly better. Still feels "wheezy" but thinks that it has improved. Reports that he was recently diagnosed with COPD but has not been started on any inhalers. Still smoking 1ppd and has for 45 years. Travel Screening - Travel/Exposure Within Last 30 Days Have you traveled within the last 30 days?: No - Travel/Exposure Within Last Year Have you traveled outside the [place] in the last year?: No - Additonal Travel Details Have you been exposed to anyone with a communicable illness?: No - Travel Symptoms Symptom Screening: Fever (GT 100.4) Review of Systems Reviewed: No additional complaints except as noted below Constitutional: Reports: Chills. Denies: Malaise, Weakness Eyes: Denies: Eye discharge, Eye pain, Photophobia, Vision change ENT: Reports: Congestion Respiratory: Reports: Cough, Wheezes. Denies: Hemoptysis Cardiovascular: Denies: Chest pain, Palpitations, Syncope Endocrine: Denies: Fatigue, Polydipsia, Polyuria Gastrointestinal: Denies: Abdominal pain, Diarrhea, Nausea, Vomiting Genitourinary: Denies: Dysuria, Frequency, Hematuria Musculoskeletal: Denies: Arthralgia, Back pain, Myalgia Skin: Denies: Bruising, Change in color, Rash Neurological: Denies: Headache Psychiatric: Denies: Anxiety Hematological/Lymphatic: Reports: As per HPI, Blood Clots. Denies: Easy bleeding, Easy bruising Past Medical History - SOCIAL HISTORY Smoking Status: Current every day smoker Alcohol Use: None Drug Use: None - RESPIRATORY Hx Respiratory Disorders: No Hx COPD: Yes Hx Dyspnea: Yes Hx Pneumonia: Yes Hx Pulmonary Embolism: Yes (02/2019 PE x 2 /DVT) Comment:: Xarelto - CARDIOVASCULAR Hx Cardio Disorders: Yes Hx Deep Vein Thrombosis: Yes Hx Hypertension: Yes - NEURO Hx Neuro Disorders: No - GI Hx GI Disorders: Yes Hx Diverticulitis: No Hx GI Bleed: No Hx Reflux: Yes Hx Liver Disease: No - Hx Genitourinary Disorders: No Hx UTI: Yes - ENDOCRINE Hx Endocrine Disorders: No Hx Diabetes: No Hx Thyroid Disease: No - MUSCULOSKELETAL Hx Musculoskeletal Disorders: Yes Comment:: spinal pinched nerves - PSYCH Hx Psych Problems: No - HEMATOLOGY/ONCOLOGY Hx Hematology/Oncology Disorders: No Family Medical History Any Significant Family History?: No Family Hx Comment (NOT TO BE USED IN PLACE OF ITEMS BELOW): unknown H&P Meds/Allergies - Allergies Allergies: Allergies Allergy/AdvReac Type Severity Reaction Status Date / Time Penicillins Allergy Severe ANAPHYLAXIS Verified 03/21/19 16:02 chlorthalidone AdvReac Severe KIDNEY Verified 03/22/19 09:12 INJURY - Home Medications Home Medications Medication Instructions Recorded Confirmed Last Taken Rivaroxaban [Xarelto] 20 mg PO DAILY 03/21/19 03/21/19 03/21/19 - Active Medications Active Medications: Current Medications Acetaminophen (Tylenol 325mg) 650 mg PO Q6H PRN PRN Reason: PAIN - MILD(1-4)/FEVER Hydrocodone Bitart/Acetaminophen ([place] 5mg/325mg) 1 each PO TID PRN PRN Reason: PAIN - MILD (1-4) Last Admin: 03/21/19 20:48 Dose: 1 each Documented by: Albuterol Sulfate (Albuterol Sulfate) 2.5 mg INH RESP.Q2H PRN PRN Reason: DIFFICULTY IN BREATHING Albuterol/Ipratropium (Duoneb) 3 ml INH RESP.Q4H.[facility] Last Admin: 03/22/19 05:22 Dose: 3 ml Documented by: Azithromycin (Zithromax) 500 mg PO DAILY [facility] Hydrochlorothiazide (Hctz 25mg) 25 mg PO DAILY [facility] Levofloxacin/Dextrose (Levaquin 750mg Ivpb) 750 mg in 150 mls @ 125 mls/hr IVPB Q24H ZIYAD Stop: 03/27/19 17:01 Sodium Chloride () 1,000 mls @ 125 mls/hr IV .Q8H PRN PRN Reason: LARGE VOLUME IV Last Admin: 03/22/19 05:34 Dose: 125 mls/hr Documented by: Losartan Potassium (Losartan Potassium) 100 mg PO DAILY [facility] Methylprednisolone Sodium Succinate (Solu-Medrol) 60 mg IVP Q8H [facility] Last Admin: 03/21/19 23:36 Dose: 60 mg Documented by: [facility] Admin: 03/22/19 06:12 Dose: 40 mg Documented by: Rivaroxaban (Xarelto) 20 mg PO DAILY [facility] Physical Exam - Vital Signs Vital Signs: Vital Signs - Last 24 Hrs Temp Pulse Pulse Resp BP BP BP 03/22/19 05:50 03/22/19 05:30 97.9 F 96 H 18 174/71 03/22/19 05:22 90 20 03/22/19 00:10 92 H 20 03/22/19 00:00 98.0 F 89 18 151/63 03/21/19 21:00 101 H 24 03/21/19 20:03 24 03/21/19 19:35 97.5 F L 101 H 24 170/86 03/21/19 19:28 99 F 93 H 24 152/86 03/21/19 18:45 97 H 20 160/89 03/21/19 17:12 98.8 F 104 H 20 131/81 03/21/19 16:23 107 H 22 03/21/19 15:53 100.1 F H 120 H 20 175/123 Pulse Ox 03/22/19 05:50 94 L 03/22/19 05:30 96 03/22/19 05:22 03/22/19 00:10 94 L 03/22/19 00:00 94 L 03/21/19 21:00 03/21/19 20:03 03/21/19 19:35 98 03/21/19 19:28 93 L 03/21/19 18:45 95 03/21/19 17:12 94 L 03/21/19 16:23 92 L 03/21/19 15:53 95 - General General Appearance: Alert, Oriented x3, Cooperative, No acute distress Limitations: No limitations - Head Head exam: Atraumatic, Normal inspection - Eye Eye exam: Normal appearance, PERRL. negative: Conjunctival injection, Scleral icterus - ENT ENT exam: Normal exam Ear exam: Normal external inspection Nasal Exam: Normal inspection Mouth exam: Normal external inspection - Neck Neck exam: Normal inspection - Respiratory Respiratory exam: Accessory muscle use, Decreased breath sounds, Prolonged expiratory, Rhonchi, Wheezes. negative: Normal lung sounds bilaterally, Respiratory distress - Cardiovascular Cardiovascular Exam: Normal rhythm, Normal heart sounds, Tachycardia. negative: Regular rate Peripheral Pulses: 2+: Radial (R), Radial (L) - GI/Abdominal GI/Abdominal exam: Soft. negative: Tenderness - exam: Deferred - Extremities Extremities exam: Pedal edema - Back Back exam: Denies: CVA tenderness (R), CVA tenderness (L) - Neurological Neurological exam: Alert, Oriented X3 - Psychiatric Psychiatric exam: Normal affect, Normal mood - Skin Skin exam: Dry, Intact, Normal color, Warm Results - Labs Result Diagrams: 03/22/19 06:25 03/21/19 16:28 Labs Last 24 Hours: Laboratory Results - last 24 hr 03/21/19 03/21/19 03/21/19 16:28 16:28 16:28 WBC 15.6 H RBC 3.88 L Hgb 11.2 L Hct 35.9 L MCV 92.5 MCH 28.8 MCHC 31.2 L RDW 14.2 Plt Count 293 MPV 8.8 Neutrophils % 90.0 H Band Neutrophils % 1.0 Lymphocytes % Monocytes % Eosinophils % Not Reportable Basophils % Not Reportable Absolute Neutrophils 14.17 Lymphocytes 7.0 L Monocytes 2.0 Platelet Estimate Normal RBC Morphology Normal Sodium 137 Potassium 4.1 Chloride 102 Carbon Dioxide 17.0 L Anion Gap 18.0 H BUN 16 Creatinine 1.8 H Estimated GFR 41 Random Glucose 134 H Calcium 8.7 L Influenza Type A Ag Negative Influenza Type B Ag Negative 10/15/19 06:25 WBC 13.9 H RBC 3.62 L Hgb 10.3 L Hct 33.4 L MCV 92.3 MCH 28.4 MCHC 30.8 L RDW 14.0 Plt Count 301 MPV 8.9 Neutrophils % Band Neutrophils % Lymphocytes % 2.5 L Monocytes % 2.0 Eosinophils % 0.0 Basophils % 0.1 Absolute Neutrophils 13.23 Lymphocytes Monocytes Platelet Estimate RBC Morphology Sodium Potassium Chloride Carbon Dioxide Anion Gap BUN Creatinine Estimated GFR Random Glucose Calcium Influenza Type A Ag Influenza Type B Ag VTE H&P Assessment - Risk for VTE Risk for VTE: Yes Risk Level: Moderate Risk Assessment Date: 03/22/19 Risk Assessment Time: 08:00 VTE Orders Placed or Will Be Placed: Yes Plan - Inpatient Certification Inpatient Certification: Admit to inpatient care: Based on my medical assessment, after consideration of patient's risk factors (age, co-morbidities and patient presenting symptoms and acuity), I expect that this patient will remain in the hospital greater than or equal to two midnights and that the services needed warrant inpatient care because: Patient Risk Factors: [] Estimated length of stay: [] The patient may reasonably be expected to be discharged or transferred to a hospital within 96 hours after admission to [facility]. Services needed: [] Post hospital care (if known): [] I certify that my determination is in accordance with my understanding of Medicare requirements for reasonable and necessary inpatient services. - Detailed Diagnosis and Plan (1) COPD (chronic obstructive pulmonary disease) Current Visit: Yes Status: Acute Base Code: J44.9 - CHRONIC OBSTRUCTIVE PULMONARY DISEASE, UNSPECIFIED Comment: 03/22/19 -New Dx since February 2019 per pt. -WBC 15.6 --> 13.9 -ddx: COPD exacerbation -Albuterol nebs per RT -Solumedrol 60mg IV q. 8 hours -Azithromycin PO 500mg q. day -Levaquin IV daily (2) Pleural effusion, right Current Visit: Yes Status: Acute Base Code: J90 - PLEURAL EFFUSION, NOT EL SEWHERE CLASSIFIED Comment: 03/22/19 -CXR: Right pleural effusion (3) Full code status Current Visit: Yes Status: Acute Base Code: Z78.9 - OTHER SPECIFIED HEALTH STATUS Comment: 03/22/19 -Full code this admission (4) DVT (deep venous thrombosis) Current Visit: No Status: Acute Qualifiers: DVT location: lower extremity Affected thrombotic vein of extremity: unspecified vein of extremity Chronicity: acute Laterality: left Qualified Code(s): I82.402 - Acute embolism and thrombosis of unspecified deep veins of left lower extremity Base Code: I82.409 - ACUTE EMBOLISM AND THOMBOS UNSP DEEP VN UNSP LOWER EXTREMI TY Comment: 03/22/19 -DVT to LLE and Recent PE -Continue home dose Xarelto 20mg daily -Nursing to encourage ambulation
--- NOTE | 2019-03-22 08:13 | RADIOLOGY REPORT ---
EXAM: CHEST, TWO VIEWS HISTORY: INCREASING SHORTNESS OF BREATH FOR FIVE DAYS. DIAGNOSED WITH DVT IN 2018. TECHNIQUE: Two views of the chest were obtained. Comparison: 01/22/19. FINDINGS: There is a new right pleural effusion. There is no evidence of pneumonia, edema, or pneumothorax. The heart and mediastinum appear normal. The skeletal structures are unremarkable. IMPRESSION: NEW RIGHT PLEURAL EFFUSION. JOB NUMBER: [id number] [facility]
[2019-03-22] MEDS: METHYLPREDNISOLONE PF 125MG/VIAL IVP SCH (08:26)
[2019-03-22] MEDS: HYDROCODONE/APAP 5/325MG TABLET PO PRN (08:28)
[2019-03-22 09:43] LABS: ALB/GLOB RATIO 1.2 (1.1-1.8); ALBUMIN 3.6 g/dL (4.0-5.0); ALT/SGPT < 5 U/L (<41); AST/SGOT 9 U/L (10.0-50.0); BLOOD UREA NITROGEN 21 mg/dL (8-23); CREATININE 1.8 mg/dL (0.7-1.2); EST GLOMERULAR FILTRATION RATE 41 mL/min; GLUCOSE,RANDOM 154 mg/dL (74-109); TOTAL PROTEIN 6.6 g/dL (6.6-8.7)
[2019-03-22] MEDS ORDERED: LOSARTAN POTASSIUM 100 MG TABLET PO SCH (10:00)
[2019-03-22] MEDS ORDERED: AZITHROMYCIN 500 MG TABLET PO SCH (10:00)
[2019-03-22] MEDS ORDERED: BIFIDOBACTERIUM INFANTIS 4 MG CAPSULE PO SCH (10:00)
[2019-03-22] MEDS ORDERED: RIVAROXABAN 20 MG TABLET PO SCH (10:00)
[2019-03-22] MEDS ORDERED: HYDROCHLOROTHIAZIDE 25 MG TABLET PO SCH (10:00)
[2019-03-22] MEDS ORDERED: ANORO (UMECLIDINIUM & VILANTEROL) 62.5MCG/25MCG INH IH SCH (10:00)
[2019-03-22 11:05] LABS: ALKALINE PHOSPHATASE 46 U/L (40-129)
--- NOTE | 2019-03-22 13:24 | Discharge Summary ---
Providers Discharge Summary Date: 03/22/19 Date of admission: 03/21/19 19:29 Attending physician: YEFRI GOODWIN Primary care physician: TRINITY BURT N.P. Physical Exam - Vital Signs Vital Signs: Vital Signs - Last 24 Hrs Temp Pulse Pulse Resp BP BP BP 03/22/19 09:51 92 H 18 03/22/19 09:20 98.7 F 76 16 143/73 03/22/19 08:05 18 03/22/19 05:50 03/22/19 05:30 97.9 F 96 H 18 174/71 03/22/19 05:22 90 20 03/22/19 00:10 92 H 20 03/22/19 00:00 98.0 F 89 18 151/63 03/21/19 21:00 101 H 24 03/21/19 20:03 24 03/21/19 19:35 97.5 F L 101 H 24 170/86 03/21/19 19:28 99 F 93 H 24 152/86 03/21/19 18:45 97 H 20 160/89 03/21/19 17:12 98.8 F 104 H 20 131/81 03/21/19 16:23 107 H 22 03/21/19 15:53 100.1 F H 120 H 20 175/123 Pulse Ox 03/22/19 09:51 99 03/22/19 09:20 95 03/22/19 08:05 03/22/19 05:50 94 L 03/22/19 05:30 96 03/22/19 05:22 03/22/19 00:10 94 L 03/22/19 00:00 94 L 03/21/19 21:00 03/21/19 20:03 03/21/19 19:35 98 03/21/19 19:28 93 L 03/21/19 18:45 95 03/21/19 17:12 94 L 03/21/19 16:23 92 L 03/21/19 15:53 95 - General General Appearance: Alert, Oriented x3, Cooperative, No acute distress Limitations: No limitations - Head Head exam: Atraumatic, Normal inspection - Eye Eye exam: Normal appearance, PERRL. negative: Conjunctival injection, Scleral icterus - ENT ENT exam: Normal exam Ear exam: Normal external inspection Nasal Exam: Normal inspection Mouth exam: Normal external inspection - Neck Neck exam: Normal inspection - Respiratory Respiratory exam: Accessory muscle use, Decreased breath sounds, Prolonged expiratory, Rhonchi, Wheezes. negative: Normal lung sounds bilaterally, Respiratory distress - Cardiovascular Cardiovascular Exam: Normal rhythm, Normal heart sounds, Tachycardia. negative: Regular rate Peripheral Pulses: 2+: Radial (R), Radial (L) - GI/Abdominal GI/Abdominal exam: Soft. negative: Tenderness - exam: Deferred - Extremities Extremities exam: Pedal edema - Back Back exam: Denies: CVA tenderness (R), CVA tenderness (L) - Neurological Neurological exam: Alert, Oriented X3 - Psychiatric Psychiatric exam: Normal affect, Normal mood - Skin Skin exam: Dry, Intact, Normal color, Warm Hospitalization - Hospitalization Admission Diagnosis: Pneumonia, COPD, Pleural effusion - Problem List/Discharge Diagnosis (1) COPD (chronic obstructive pulmonary disease) Current Visit: Yes Status: Acute Base Code: J44.9 - CHRONIC OBSTRUCTIVE PULMONARY DISEASE, UNSPECIFIED Comment: 03/22/19 -New Dx since February 2019 per pt. -WBC 15.6 --> 13.9 -ddx: COPD exacerbation -Albuterol nebs per RT -Solumedrol 60mg IV q. 8 hours -Azithromycin PO 500mg q. day -Levaquin IV daily (2) Pleural effusion, right Current Visit: Yes Status: Acute Base Code: J90 - PLEURAL EFFUSION, NOT ELSEWHERE CLASSIFIED Comment: 03/22/19 -CXR: Right pleural effusion (3) HTN (hypertension) Current Visit: Yes Status: Acute Base Code: I10 - ESSENTIAL (PRIMARY) HY PERTENSION Comment: 03/22/19: - Resume home Losartan 100mg daily. (4) DVT (deep venous thrombosis) Current Visit: No Status: Acute Discharge Diagnosis: DVT location: lower extremity Affected thrombotic vein of extremity: unspecified vein of extremity Chronicity: acute Laterality: left Qualified Code(s): I82.402 - Acute embolism and thrombosis of unspecified deep veins of left lower extremity Base Code: I82.409 - ACUTE EMBOLISM AND THOMBOS UNSP DEEP VN UNSP LOWER EXTREMITY Comment: 03/22/19 -DVT to LLE and Recent PE -Continue home dose Xarelto 20mg daily -Nursing to encourage ambulation (5) Full code status Current Visit: Yes Status: Acute Base Code: Z78.9 - OTHER SPECIFIED HEALTH STATUS Comment: 03/22/19 -Full code this admission - Hospitalization Course Hospital Course: Jaden Meneses is a 58 y.o. M who presented to the [facility] ED on 03/21/19 for c/o wheezing, SOB, cough with chills x 24 hours. Cough had been present for about 1 week. Was recently diagnosed with DVT to LLE and PE in February 2019. During that hospitalization, he was diagnosed with COPD. Has been on Xarelto since February and states that he has not missed any doses. PMHx: COPD, LLE DVT, Tobacco use, GERD, low back pain PCP: Trinity Burt NP ED Course -Vitals: T 100.1, HR 120, BP 175/123, RR 20, SpO2 95% on RA -Labs: WBC 15.6, Hgb 11.2, AG 18, Creatinine 1.8 -Influenza Negative -CXR: New Right Pleural Effusion 03/22/19 0800 Vitals: T 97.9, HR 96, BP 174/71, RR 18, SpO2 94% on RA Pt was started on Albuterol nebulizer treatments, IV solumedrol, Azithromycin and Levaquin yesterday. Today, he reports that he feels significantly better. Still feels "wheezy" but thinks that it has improved. Reports that he was recently diagnosed with COPD but has not been started on any inhalers. Still smoking 1ppd and has for 45 years. Assessment at 8:40 am: The patient is awake and in no acute distress. He is not requiring supplemental oxygen and he is able to ambulate without becoming short of breath. WBCs have trended down and all other labs are within normal limits. Procedures: Imaging and X-Rays 03/21/19 16:11 CHEST 2 VIEWS [RAD] Stat Cardiology Procedures 03/21/19 16:14 Central Supply Technician NOW 03/21/19 19:38 Central Supply Technician .Continuous Abnormal Labs: Abnormal Lab Results 03/21/19 03/21/19 03/22/19 Range/Units 16:28 16:28 06:25 WBC 15.6 H 13.9 H (4.2-12.2) K/uL RBC 3.88 L 3.62 L (4.40-5.70) M/uL Hgb 11.2 L 10.3 L (14.0-18.0) gm/dl Hct 35.9 L 33.4 L (42.0-52.0) % MCHC 31.2 L 30.8 L (32-36) g/dl Neutrophils % 90.0 H 95.0 H (47-80) % Lymphocytes % 2.5 L (16-45) % Lymphocytes 7.0 L 3.0 L (16-45) % Carbon Dioxide 17.0 L (22-29) mmol/L Anion Gap 18.0 H (7-16) Creatinine 1.8 H (0.7-1.2) mg/dL Random Glucose 134 H (74-109) mg/dL Calcium 8.7 L (8.8-10.2) mg/dL AST (10.0-50.0) U/L Albumin (4.0-5.0) g/dL 03/22/19 Range/Units 06:25 WBC (4.2-12.2) K/uL RBC (4.40-5.70) M/uL Hgb (14.0-18.0) gm/dl Hct (42.0-52.0) % MCHC (32-36) g/dl Neutrophils % (47-80) % Lymphocytes % (16-45) % Lymphocytes (16-45) % Carbon Dioxide 18.0 L (22-29) mmol/L Anion Gap 17.0 H (7-16) Creatinine 1.8 H (0.7-1.2) mg/dL Random Glucose 154 H (74-109) mg/dL Calcium 8.5 L (8.8-10.2) mg/dL AST 9 L (10.0-50.0) U/L Albumin 3.6 L (4.0-5.0) g/dL Condition at Discharge: (2) Stable Discharge Medications - Discharge Medications Prescriptions: Fluticasone/Vilanterol 200/25 [Breo Ellipta 200-25 Mcg INH] 1 puff INH RESP.DAILY #1 inhaler Prednisone [Deltasone] 40 mg PO DAILY 3 Days #6 tablet Home Medications: Ambulatory Orders Hydrocodone/Acetaminophen [[place] 5-325 Tablet] 2 tab PO Q6H PRN 01/22/19 [Last Taken 03/21/19] Losartan Potassium 100 mg PO DAILY 01/22/19 [Last Taken 03/21/19] Omeprazole 20 mg PO DAILY 01/22/19 [Last Taken 03/21/19] Hydrochlorothiazide [Hctz] 25 mg PO DAILY 02/07/19 [Last Taken 03/21/19] Rivaroxaban [Xarelto] 20 mg PO DAILY 03/21/19 [Last Taken 03/21/19] Fluticasone/Vilanterol 200/25 [Breo Ellipta 200-25 Mcg INH] 1 puff INH RESP.DAILY #1 inhaler 03/22/19 [Last Taken Unknown] Prednisone [Deltasone] 40 mg PO DAILY 3 Days #6 tablet 03/22/19 [Last Taken Unknown] Discharge Plan - Discharge Instructions Instructions: COPD (Chronic Obstructive Pulmonary Disease) (DC), How Your Lungs Work (DC), Chronic Lung Disease and Infection Prevention (DC), Nutrition Guidelines for People with COPD (DC) Additional Instructions: Activity: As tolerated Diet: As tolerated Consults: [] Follow Up: [Follow up appointment with Leona Hutton NP at [facility] in [place] March 24 at 10:00am. Your PCP Trinity Burt NP will be there as well. .] Dressing/Wound Care: (Type) (Change) Additional: [] New medications Begin using Breo inhaler once daily and use your Albuterol rescue inhaler when needed. Take Prednisone (2 - 20mg tabs) 40mg daily for the next 3 days. Resume all other home medications as prescribed by your PCP. Follow up with PCP for flu shot. Quality Measures - Quality Measures Quality Measures: Documentation of Current Medications in Medical Record, Screening for High Blood Pressure and F/U Documented - Current Medications Quality Measure: Measure #130: Documentation of Current Medications Documentation of Current Medications: <Current Medications Documented/Reviewed> [G8427] - Blood Pressure Screening Quality Measure: Screening for High Blood Pressure and Follow-Up Documented Does Patient Have Any of the Following: Active Dx of HTN Blood Pressure Classification: Hypertensive Reading Systolic Measurement: 175 Diastolic Measurement: 123 Screening for High Blood Pressure: Patient Exclusion, Hx of HTN [G9744] - Elder Abuse Suspicion Index EASI Reference Information: Tahir BOCANEGRA, Ezio C, Blu D, Hilda Cruz.Development and validation of a tool to assist physicians identification of elder abuse: The Elder Abuse Suspicion Index (EASI ). Journal of Elder Abuse and Neglect, 2008; 20 (3): 276-300.
[2019-03-22] MEDS ORDERED: LEVOFLOXACIN/D5W 750 MG/150 ML BAG IVPB SCH (17:00)
[2019-03-23] MEDS ORDERED: METHYLPREDNISOLONE PF 125MG/VIAL IVP SCH (10:00)
== END 2019-03-22 16:00 | disposition home or self-care (01) ==
LOC: ER 14:59 → INTOOBSV 19:29 → MEDSURG 19:29
PROVIDERS: ADMIT Internal Medicine; ATTEND Internal Medicine
DX: J18.8 Other pneumonia, unspecified organism (principal); J44.9 Chronic obstructive pulmonary disease, unspecified; J90 Pleural effusion, not elsewhere classified; I82.402 Acute embolism and thrombosis of unspecified deep veins of left lower extremity; I26.99 Other pulmonary embolism without acute cor pulmonale; R06.02 Shortness of breath; R50.9 Fever, unspecified; I10 Essential (primary) hypertension; Z79.01 Long term (current) use of anticoagulants; F17.210 Nicotine dependence, cigarettes, uncomplicated; K21.9 Gastro-esophageal reflux disease without esophagitis
CPT/HCPCS: 71046; 80048; 80053; 85027; 87400; 94640; 94761; 96365; 96366; 96374; 99220; 99285; J1956; J2930